=== PATIENT | male | born 1945 | race Caucasian/White ===

== ENCOUNTER → 2018-02-23 | Outpatient (CLI) | payer MEDICARE | END | disposition home or self-care (01) | LOC: CFH 06:59 | PROVIDERS: ATTEND Nurse Practitioner Family | DX: G31.9 Degenerative disease of nervous system, unspecified (principal); R90.82 White matter disease, unspecified | CPT/HCPCS: 70551 ==

== ENCOUNTER → 2018-05-06 | Outpatient (CLI) | payer MEDICARE ==
[~2018-05-06] MED LIST: OMNIPAQUE 350 MG/ML, 100ML BOTTLE ONE
== END | disposition home or self-care (01) ==
LOC: CFH 11:41
PROVIDERS: ATTEND Nurse Practitioner Family
DX: I65.23 Occlusion and stenosis of bilateral carotid arteries (principal); R42 Dizziness and giddiness
CPT/HCPCS: 70496; 70498; Q9967

== ENCOUNTER 2018-06-09 10:47 | Inpatient (IN) | payer MEDICARE ==
[~2018-06-09] VITALS: Ht 185.4 cm; Wt 77.3 kg
[2018-06-09 11:19] LABS: BASOPHILS # (AUTO) 0.03 x10^3/uL (0-0.1); BASOPHILS % (AUTO) 0 % (0-1); EOSINOPHILS # (AUTO) 0.09 x10^3/uL (0-0.4); EOSINOPHILS % (AUTO) 1 % (1-7); LYMPHOCYTES # (AUTO) 1.57 x10^3/uL (1-3.4); LYMPHOCYTES % (AUTO) 22 % (22-44); MD NO; MEAN CORPUSCULAR HEMOGLOBIN 31.5 pg (27.5-34.5); MEAN CORPUSCULAR HGB CONC 34.1 g/dL (33.2-36.2); MEAN CORPUSCULAR VOLUME 92.4 fL (81-97); MEAN PLATELET VOLUME 8.4 fL (7.4-10.4); MONOCYTES # (AUTO) 0.42 x10^3/uL (0.2-0.8); MONOCYTES % (AUTO) 6 % (2-9); NEUTROPHILS # (AUTO) 5.09 x10^3/uL (1.8-6.8); NEUTROPHILS % (AUTO) 71 % (42-75); PLATELET COUNT 220 x10^3/uL (130-400); RED BLOOD COUNT 4.36 x10^6/uL (4.38-5.82); RED CELL DISTRIBUTION WIDTH 13.2 % (9.4-14.8)
[2018-06-09 11:27] LABS: ALBUMIN 3.4 g/dL (3.4-5.0); ANION GAP 7 mmol/L (5-15); CALCIUM 8.8 mg/dL (8.5-10.1); CHLORIDE 110 mmol/L (98-107); CREATININE 1.24 mg/dL (0.7-1.3)
[2018-06-09 11:31] LABS: TROPONIN I < 0.015 ng/mL (0.000-0.045)
--- NOTE | 2018-06-09 11:50 | NUR ---
patient safe in [facility], accompanied by spouse, US at bedside now for carotid scan, VSS on room air, no pain, call light in reach. Patient's spouse recounts the following: Constipation x 7 days patient straining to have BM this AM, spouse heard the patient drop his book and ask for her help, she found him prone on the floor, stating "I feel exhausted", patient was then helped up to the toilet, appeared to fall asleep with slight snore, spouse went to get phone and called 911, upon returning to the bathroom patient sitting up at toilet wide awake with no discomfort.
--- NOTE | 2018-06-09 14:30 | NUR ---
report to MARIEL Garza, all questions answered, patient updated of transfer plan, 2 large BMs within last 90 minutes, no dizziness since arrival to ER.
[2018-06-09] MEDS ORDERED: ONDANSETRON ODT 4 MG PO PRN (15:00)
[2018-06-09] MEDS ORDERED: DOCUSATE 100 MG CAPSULE PO PRN (15:00)
[2018-06-09] MEDS ORDERED: ACETAMINOPHEN 325 MG TABLET PO PRN (15:00)
[2018-06-09] MEDS ORDERED: BISACODYL 10 MG SUPP PR PRN (15:00)
[2018-06-09] MEDS ORDERED: ONDANSETRON 2MG/ML, 2ML IVPush PRN (15:00)
[2018-06-09] MEDS ORDERED: hydrALAzine 20 MG/ML, 1ML IVPush PRN (15:00)
[2018-06-09] MEDS ORDERED: ENALAPRILAT 1.25 MG/ML, 2ML IVPush PRN (15:00)
[2018-06-09 15:03] VITALS: BP 148/75
[2018-06-09] MEDS ORDERED: LORA2TAB99 PO (15:07)
[2018-06-09] MEDS ORDERED: LISI-167 PO (15:35)
[2018-06-09 16:06] LABS: HEMOGLOBIN A1C 5.6 % (4.2-6.3)
[2018-06-09] MEDS: SODIUM CHLORIDE 0.9% 1,000 ML IV SCH (16:12)
[2018-06-09 16:26] LABS: MICROSCOPIC NOT IND
[2018-06-09 16:30] LABS: CULTURE INDICATED? NO
[2018-06-09 19:20] VITALS: BP_SYST 117; BP_SYST 122; BP_DIAS 61; BP_DIAS 65
[2018-06-09 19:22] VITALS: BP 119/64
[2018-06-10] MEDS ORDERED: LORazepam 1MG TABLET PO PRN
[2018-06-10] MEDS ORDERED: MAGNESIUM CITRATE 300ML ORAL SOL PO PRN
[2018-06-10 01:57] VITALS: BP 124/68
[2018-06-10] MEDS: SODIUM CHLORIDE 0.9% 1,000 ML IV SCH (05:21)
[2018-06-10 06:11] LABS: BASOPHILS # (AUTO) 0.02 x10^3/uL (0-0.1); BASOPHILS % (AUTO) 0 % (0-1); EOSINOPHILS # (AUTO) 0.09 x10^3/uL (0-0.4); EOSINOPHILS % (AUTO) 1 % (1-7); LYMPHOCYTES # (AUTO) 2.34 x10^3/uL (1-3.4); LYMPHOCYTES % (AUTO) 32 % (22-44); MD NO; MEAN CORPUSCULAR HEMOGLOBIN 30.9 pg (27.5-34.5); MEAN CORPUSCULAR HGB CONC 33.3 g/dL (33.2-36.2); MEAN CORPUSCULAR VOLUME 92.8 fL (81-97); MEAN PLATELET VOLUME 8.6 fL (7.4-10.4); MONOCYTES # (AUTO) 0.65 x10^3/uL (0.2-0.8); MONOCYTES % (AUTO) 9 % (2-9); NEUTROPHILS % (AUTO) 58 % (42-75); PLATELET COUNT 209 x10^3/uL (130-400); RED BLOOD COUNT 4.03 x10^6/uL (4.38-5.82); RED CELL DISTRIBUTION WIDTH 13.8 % (9.4-14.8)
[2018-06-10 06:27] LABS: ANION GAP 6 mmol/L (5-15); CALCIUM 8.2 mg/dL (8.5-10.1); CHLORIDE 113 mmol/L (98-107)
[2018-06-10 06:38] LABS: CHOL/HDL RATIO 4.4; CHOLESTEROL, TOTAL 201 mg/dL (140-239); CREATININE 0.91 mg/dL (0.7-1.3); HDL CHOL % 23 % (26-37); HDL CHOLESTEROL (DIRECT) 46 mg/dL (40-60); LDL CHOLESTEROL,CALCULATED 143 mg/dL (54-169); LDL/HDL RATIO 3.1 (0.5-3.0); TRIGLYCERIDES 58 mg/dL (50-200); VLDL CHOLESTEROL 12 mg/dL (0-25)
[2018-06-10 06:55] VITALS: BP 140/79
[2018-06-10] MEDS ORDERED: ASCORBIC ACID 500 MG TABLET PO SCH (08:00)
[2018-06-10] MEDS ORDERED: OMEGA-3/FISH OIL CAPSULE PO SCH (09:00)
[2018-06-10] MEDS ORDERED: MULTIVITAMIN 1 TABLET PO SCH (09:00)
[2018-06-10] MEDS ORDERED: LISINOPRIL 10 MG TABLET PO SCH (09:00)
[2018-06-10] MEDS ORDERED: CALCIUM CITRATE 950 MG TABLET PO SCH (09:00)
[2018-06-10] MEDS ORDERED: ASPI-515 PO (13:46)
[2018-06-10] MEDS ORDERED: ATOR40TA78 PO (13:46)
== END 2018-06-10 14:00 | disposition home or self-care (01) | DRG 312 ==
LOC: ED 11:11 → EDIP 13:43 → 4EST 14:47
PROVIDERS: ADMIT Hospitalist; ATTEND Hospitalist
DX: R55 Syncope and collapse (principal); G90.9 Disorder of the autonomic nervous system, unspecified; I35.8 Other nonrheumatic aortic valve disorders; I44.0 Atrioventricular block, first degree; I65.23 Occlusion and stenosis of bilateral carotid arteries; K59.00 Constipation, unspecified; Z87.442 Personal history of urinary calculi
CPT/HCPCS: 36415; 74018; 80048; 80061; 81003; 82040; 83036; 84443; 84484; 85025; 93005; 93306; 93880; 95819; 99285; G0378; J7030

== ENCOUNTER 2018-06-18 08:00 | Inpatient (IN) | payer MEDICARE ==
[~2018-06-18] VITALS: Ht 185.4 cm; Wt 69.8 kg
[~2018-06-18 08:00] MED LIST changes: +ASPI-515 PO; +ATOR40TA78 PO; +LISI-167 PO; +LORA2TAB99 PO; -OMNIPAQUE 350 MG/ML, 100ML BOTTLE ONE
[2018-06-18] MEDS ORDERED: CHOL500062 PO (13:36)
[2018-06-18] MEDS ORDERED: SILD20TA2 PO (13:36)
[2018-06-18] MEDS ORDERED: OMEG-123 PO (13:36)
[2018-06-18] MEDS ORDERED: RED600CA2 PO (13:36)
[2018-06-18] MEDS ORDERED: LORA1TAB PO (13:36)
[2018-06-18] MEDS ORDERED: OCUVITE SOFTGE1 EACH PO (13:36)
[2018-06-18] MEDS ORDERED: CRAN500T2 PO (13:36)
[2018-06-18] MEDS ORDERED: CA C1TAB62 PO (13:36)
[2018-06-18 13:51] VITALS: BP 144/83
[2018-06-18] MEDS ORDERED: BUPIVACAINE/PF-EPI 0.5% 1:200K ONE (14:51)
[2018-06-18] MEDS ORDERED: HEPARIN 1,000 UNITS/ML, 10ML ONE (14:51)
[2018-06-18] MEDS ORDERED: PROTAMINE SULFATE 10 MG/ML, 5ML ONE (14:51)
[2018-06-18] MEDS ORDERED: PAPAVERINE 30 MG/ML, 2ML ONE (14:51)
[2018-06-18] MEDS ORDERED: THROMBIN 20,000 UNIT VIAL TP ONE (14:52)
[2018-06-18] MEDS ORDERED: BACITRACIN 50,000 UNIT ONE (14:52)
[2018-06-18] MEDS ORDERED: PROPOFOL 10 MG/ML, 20ML ONE (14:58)
[2018-06-18] MEDS ORDERED: ROCURONIUM 10MG/ML,5ML ONE (14:58)
[2018-06-18] MEDS ORDERED: EPHEDRINE 50 MG/ML, 1ML ONE (14:58)
[2018-06-18] MEDS ORDERED: CEFAZOLIN 1,000 MG ONE (14:58)
[2018-06-18] MEDS ORDERED: FENTANYL PF 100 MCG/2ML ONE ×3 (15:21→18:14)
[2018-06-18] MEDS ORDERED: LIDOCAINE 1%, 20ML ONE (16:37)
[2018-06-18] MEDS ORDERED: BUPIVACAINE/PF-EPI 0.5% 1:200K INFIL ONE (16:40)
[2018-06-18] MEDS ORDERED: LIDOCAINE 1%, 20ML INFIL ONE (16:42)
[2018-06-18] MEDS ORDERED: HYDROmorphone 2 MG/ML, 1ML IVPush PRN (17:30)
[2018-06-18] MEDS ORDERED: PROMETHAZINE 25 MG/ML, 1ML IV PRN (17:30)
[2018-06-18] MEDS ORDERED: DIAZEPAM 5 MG/ML, 2ML IVPush PRN (17:30)
[2018-06-18] MEDS ORDERED: LABETALOL 5MG/ML, 20ML IV PRN (17:30)
[2018-06-18] MEDS ORDERED: ALBUTEROL SULFATE 2.5 MG/3 ML NPPB PRN (17:30)
[2018-06-18] MEDS ORDERED: ACETAMINOPHEN 325 MG TABLET PO PRN (17:30)
[2018-06-18] MEDS ORDERED: OXYcodone 5 MG/5 ML ORAL.SOL UDC PO PRN (17:30)
[2018-06-18] MEDS ORDERED: MEPERIDINE/PF 25MG/0.5ML IVPush PRN (17:30)
[2018-06-18] MEDS ORDERED: hydrALAzine 20 MG/ML, 1ML IV PRN ×2 (17:30→18:30)
[2018-06-18] MEDS ORDERED: LACTATED RINGERS 1,000 ML IV SCH (18:13)
[2018-06-18] MEDS: FENTANYL PF 100 MCG/2ML IV PRN ×2 (18:15→18:45)
[2018-06-18] MEDS ORDERED: ACETAMINOPHEN 650 MG SUPP PR PRN (18:30)
[2018-06-18] MEDS ORDERED: CEFAZOLIN PMX 1GM/50ML 50 ML IVPB SCH (18:30)
[2018-06-18] MEDS ORDERED: ASPIRIN 81 MG TABLET EC PO ONE (18:30)
[2018-06-18] MEDS ORDERED: SILDENAFIL CITRATE 100 MG HOMEMEDPO PRN (18:30)
[2018-06-18] MEDS ORDERED: LORazepam 1MG TABLET PO PRN (18:30)
[2018-06-18] MEDS ORDERED: OXYcodone 5 MG/5 ML ORAL.SOL UDC ONE (18:47)
[2018-06-18] MEDS ORDERED: ACETAMINOPHEN 650 MG/20.3 ML UDC ONE (18:49)
[2018-06-18] MEDS ORDERED: ASPIRIN 81 MG TABLET EC ONE (18:49)
[2018-06-18 20:00] VITALS: BP 136/66
[2018-06-18] MEDS ORDERED: TEMPLATE NON-FORMULARY MED. (Red Yeast Rice** 600 MG) PO SCH (21:00)
[2018-06-18] MEDS ORDERED: CRANBERRY EXTRACT PO SCH (21:00)
[2018-06-18] MEDS: ENOXAPARIN 40 MG/0.4 ML SQ SCH (22:15)
[2018-06-18] MEDS: OMEGA-3/FISH OIL CAPSULE PO SCH (22:15)
[2018-06-18 22:21] VITALS: BP 136/66
[2018-06-19] VITALS (7 sets, daily range): BP systolic 93–123; BP diastolic 50–69
[2018-06-19] MEDS: CEFAZOLIN PMX 1GM/50ML 50 ML IVPB SCH ×2 (00:12→07:52)
[2018-06-19] MEDS: OMEGA-3/FISH OIL CAPSULE PO SCH ×2 (07:51→19:52)
[2018-06-19] MEDS: CHOLECALCIFEROL 5,000u TAB PO SCH (07:51)
[2018-06-19] MEDS: HYDROcodone/APAP 5/325 TABLET PO PRN (07:51)
[2018-06-19] MEDS: LUTEIN PO SCH (07:52)
[2018-06-19] MEDS: VIT C PO SCH (07:52)
[2018-06-19] MEDS: VIT E PO SCH (07:52)
[2018-06-19] MEDS: OMEGA PO SCH (07:52)
[2018-06-19] MEDS: TAMSULOSIN 0.4 MG CAP.ER.24H PO SCH (09:53)
[2018-06-19] MEDS ORDERED: SILDENAFIL CITRATE 100 MG HOMEMEDPO PRN (11:30)
[2018-06-19] MEDS: ENOXAPARIN 40 MG/0.4 ML SQ SCH (18:20)
[2018-06-19] MEDS ORDERED: SODIUM CHLORIDE 0.9%, 500ML IVBOLUS ONE (22:30)
[2018-06-19] MEDS: SODIUM CHLORIDE 0.9% 1,000 ML IV SCH (23:08)
[2018-06-20] MEDS: HYDROcodone/APAP 5/325 TABLET PO PRN ×2 (00:32→06:01)
[2018-06-20 01:30] VITALS: BP 116/66
[2018-06-20 06:51] VITALS: BP 119/63
[2018-06-20] MEDS: VIT C PO SCH (09:00)
[2018-06-20] MEDS: VIT E PO SCH (09:00)
[2018-06-20] MEDS: OMEGA PO SCH (09:00)
[2018-06-20] MEDS: LUTEIN PO SCH (09:00)
[2018-06-20] MEDS: CHOLECALCIFEROL 5,000u TAB PO SCH (09:47)
[2018-06-20] MEDS: TAMSULOSIN 0.4 MG CAP.ER.24H PO SCH (09:47)
[2018-06-20] MEDS: OMEGA-3/FISH OIL CAPSULE PO SCH ×2 (09:47→20:54)
[2018-06-20] MEDS: SODIUM CHLORIDE 0.9% 1,000 ML IV SCH (10:05)
[2018-06-20 13:21] VITALS: BP 120/70
[2018-06-20] MEDS ORDERED: GADOBUTROL 7.5 MMOL/7.5 ML PFS ONE (13:41)
[2018-06-20] MEDS: ENOXAPARIN 40 MG/0.4 ML SQ SCH (18:26)
[2018-06-20 19:27] VITALS: BP 126/69
[2018-06-21 01:35] VITALS: BP 116/74
[2018-06-21] MEDS: SODIUM CHLORIDE 0.9% 1,000 ML IV SCH (05:15)
[2018-06-21 08:27] VITALS: BP 143/83
[2018-06-21] MEDS: CHOLECALCIFEROL 5,000u TAB PO SCH (08:59)
[2018-06-21] MEDS: LUTEIN PO SCH (08:59)
[2018-06-21] MEDS: TAMSULOSIN 0.4 MG CAP.ER.24H PO SCH (08:59)
[2018-06-21] MEDS: OMEGA-3/FISH OIL CAPSULE PO SCH (08:59)
[2018-06-21] MEDS: OMEGA PO SCH (08:59)
[2018-06-21] MEDS: VIT C PO SCH (08:59)
[2018-06-21] MEDS: VIT E PO SCH (08:59)
[2018-06-21] MEDS ORDERED: ATOR20TA37 PO (11:05)
[2018-06-21] MEDS ORDERED: APIX5TAB PO (11:05)
[2018-06-21] MEDS ORDERED: METO25TA35 PO ×2 (11:05)
[2018-06-21] MEDS ORDERED: ASPI-496 PO (11:05)
[2018-06-21 12:11] VITALS: BP 132/75
[2018-06-21] MEDS ORDERED: TAMS-11 PO (13:31)
[2018-06-22] MEDS ORDERED: TAMSULOSIN 0.4 MG CAP.ER.24H PO SCH (09:00)
== END 2018-06-21 14:05 | disposition home or self-care (01) | DRG 37 ==
LOC: 4NOR 12:24 → 5SO 19:56 → DCLOUNGE 06-21 13:57
PROVIDERS: ADMIT Surgery; ATTEND Surgery
PROC: 03UJ0JZ Supplement Left Common Carotid Artery with Synthetic Substitute, Open Approach (ICD-10-PCS; 2018-06-18)
PROC: 03HY32Z Insertion of Monitoring Device into Upper Artery, Percutaneous Approach (ICD-10-PCS; 2018-06-18)
PROC: 03CN0ZZ Extirpation of Matter from Left External Carotid Artery, Open Approach (ICD-10-PCS; 2018-06-18)
PROC: 03UN0JZ Supplement Left External Carotid Artery with Synthetic Substitute, Open Approach (ICD-10-PCS; 2018-06-18)
PROC: 03CJ0ZZ Extirpation of Matter from Left Common Carotid Artery, Open Approach (ICD-10-PCS; principal; 2018-06-18 15:00)
DX: I65.23 Occlusion and stenosis of bilateral carotid arteries (principal); I63.40 Cerebral infarction due to embolism of unspecified cerebral artery; D68.69 Other thrombophilia; E78.5 Hyperlipidemia, unspecified; F41.9 Anxiety disorder, unspecified; I48.0 Paroxysmal atrial fibrillation; I73.9 Peripheral vascular disease, unspecified; I89.0 Lymphedema, not elsewhere classified; N40.0 Benign prostatic hyperplasia without lower urinary tract symptoms; Z79.01 Long term (current) use of anticoagulants; Z82.3 Family history of stroke; Z85.820 Personal history of malignant melanoma of skin; Z87.891 Personal history of nicotine dependence; Z82.49 Family history of ischemic heart disease and other diseases of the circulatory system; Z80.3 Family history of malignant neoplasm of breast; Z90.49 Acquired absence of other specified parts of digestive tract; Z90.89 Acquired absence of other organs
CPT/HCPCS: 70450; 70553; 71045; 93005; 93308; A9585; C1729; G0378; J0690; J1644; J1650; J2704; J2720; J3010; J3490; C1781; J0360; J2440; J7030; J7040

== ENCOUNTER 2018-06-27 21:06 | Inpatient (IN) | payer MEDICARE ==
[~2018-06-27] VITALS: Ht 185.4 cm; Wt 74.2 kg
[~2018-06-27 21:06] MED LIST changes: +APIX5TAB PO; +ASPI-496 PO; +ATOR20TA37 PO; +CA C1TAB62 PO; +CHOL500062 PO; +CRAN500T2 PO; +LORA1TAB PO; +METO25TA35 PO; +OCUVITE SOFTGE1 EACH PO; +OMEG-123 PO; +RED600CA2 PO; +SILD20TA2 PO; +TAMS-11 PO
--- NOTE | 2018-06-27 21:10 | NUR ---
LATE ENTRY FOR 21:10. FIRST CONTACT WITH PT. PT C/O DIZZINESS SINCE 20PM TONIGHT. PT HAS HX OF DIZZINESS ON AND OFF FOR A WHILE. PT DENIES ANY OTHER S/S AT THIS TIME. PT'S AOX4. RESPS EVEN AND UNLABORED. ALL MONITORS IN PLACE. CALL LIGHT WITHIN REACH. A-FIB ON MATE RELIEF AT THIS TIME. EDMD NOTIFIED. EDMD AT BEDSIDE TO EXPLAIN POC AT THIS TIME.
[2018-06-27] MEDS ORDERED: SODIUM CHLORIDE FLUSH 10ML SYR IVF ONE (21:30)
[2018-06-27] MEDS ORDERED: methylPREDNISolone SOD SUCC 125 MG/2 ML ONE (21:41)
--- NOTE | 2018-06-27 22:00 | NUR ---
PT AMB TO BR AND BACK TO ROOM WITH STEADY GAIT FOR UA.
[2018-06-27 22:32] LABS: BASOPHILS # (AUTO) 0.11 x10^3/uL (0-0.1); BASOPHILS % (AUTO) 2 % (0-1); EOSINOPHILS # (AUTO) 0.15 x10^3/uL (0-0.4); EOSINOPHILS % (AUTO) 2 % (1-7); LYMPHOCYTES # (AUTO) 1.93 x10^3/uL (1-3.4); LYMPHOCYTES % (AUTO) 27 % (22-44); MD NO; MEAN CORPUSCULAR HEMOGLOBIN 31.1 pg (27.5-34.5); MEAN CORPUSCULAR HGB CONC 33.7 g/dL (33.2-36.2); MEAN CORPUSCULAR VOLUME 92.4 fL (81-97); MEAN PLATELET VOLUME 9.1 fL (7.4-10.4); MONOCYTES # (AUTO) 0.64 x10^3/uL (0.2-0.8); MONOCYTES % (AUTO) 9 % (2-9); NEUTROPHILS # (AUTO) 4.46 x10^3/uL (1.8-6.8); NEUTROPHILS % (AUTO) 61 % (42-75); PLATELET COUNT 297 x10^3/uL (130-400); RED BLOOD COUNT 4.36 x10^6/uL (4.38-5.82); RED CELL DISTRIBUTION WIDTH 12.9 % (9.4-14.8)
[2018-06-27 22:45] LABS: ALANINE AMINOTRANSFERASE 36 U/L (12-78); ALBUMIN 3.4 g/dL (3.4-5.0); ANION GAP 7 mmol/L (5-15); CALCIUM 8.7 mg/dL (8.5-10.1); CHLORIDE 108 mmol/L (98-107); CREATININE 1.21 mg/dL (0.7-1.3)
[2018-06-27 22:49] LABS: MICROSCOPIC NOT IND
[2018-06-27 22:50] LABS: ALKALINE PHOSPHATASE 75 U/L (45-117); BILIRUBIN,TOTAL 0.4 mg/dL (0.2-1.0); TOTAL PROTEIN 7.7 g/dL (6.4-8.2); TROPONIN I < 0.015 ng/mL (0.000-0.045)
[2018-06-27] MEDS ORDERED: TAMS-11 PO (22:54)
[2018-06-27 22:57] LABS: CULTURE INDICATED? NO
--- NOTE | 2018-06-27 23:02 | NUR ---
PT RESTING IN [place]. PT'S AOX4. RESPS EVEN AND UNLABORED. ALL MONITORS IN PLACE. CALL LIGHT WITHIN REACH. PT'S AT BEDSIDE. PT DENIES ANY NEEDS OR CONCERNS AT THIS TIME.
--- NOTE | 2018-06-27 23:22 | NUR ---
A-FIB ON INSIGHT DIRECTOR RATE 60'S AT THIS TIME. HR DROPPED TO 25 BPM. EDMD NOTIFIED . EDMD DECIDED TO DO CARDIOVERSION.
[2018-06-27] MEDS ORDERED: PROPOFOL 10 MG/ML, 20ML IVPush ONE (23:30)
[2018-06-27] MEDS ORDERED: PROPOFOL 10 MG/ML, 20ML ONE (23:34)
--- NOTE | 2018-06-27 23:54 | NUR ---
EDMD DID CARDIOVERSION. SEE PAPER CHARTING.
--- NOTE | 2018-06-28 00:22 | NUR ---
REPORT GIVEN TO JESSE FLOYD. ALL QUESTIONS ANSWERED.
[2018-06-28] MEDS ORDERED: BISACODYL 10 MG SUPP PR PRN (00:30)
[2018-06-28] MEDS ORDERED: LORazepam 1MG TABLET PO PRN (00:30)
[2018-06-28] MEDS ORDERED: POLYETHYLENE GLYCOL 17 GM PACKET PO PRN (00:30)
[2018-06-28] MEDS ORDERED: ONDANSETRON ODT 4 MG PO PRN (00:30)
[2018-06-28] MEDS ORDERED: ACETAMINOPHEN 325 MG TABLET PO PRN (00:30)
[2018-06-28 00:59] VITALS: BP 136/82
[2018-06-28 03:30] VITALS: BP 141/85
[2018-06-28] MEDS: ASPIRIN 81 MG TABLET EC PO SCH (05:48)
[2018-06-28 05:56] LABS: BASOPHILS # (AUTO) 0.04 x10^3/uL (0-0.1); BASOPHILS % (AUTO) 1 % (0-1); EOSINOPHILS # (AUTO) 0.11 x10^3/uL (0-0.4); EOSINOPHILS % (AUTO) 2 % (1-7); LYMPHOCYTES # (AUTO) 2.31 x10^3/uL (1-3.4); LYMPHOCYTES % (AUTO) 37 % (22-44); MD NO; MEAN CORPUSCULAR HEMOGLOBIN 31.4 pg (27.5-34.5); MEAN CORPUSCULAR HGB CONC 33.8 g/dL (33.2-36.2); MEAN CORPUSCULAR VOLUME 92.7 fL (81-97); MEAN PLATELET VOLUME 8.4 fL (7.4-10.4); MONOCYTES # (AUTO) 0.59 x10^3/uL (0.2-0.8); MONOCYTES % (AUTO) 9 % (2-9); NEUTROPHILS # (AUTO) 3.21 x10^3/uL (1.8-6.8); NEUTROPHILS % (AUTO) 51 % (42-75); PLATELET COUNT 289 x10^3/uL (130-400); RED BLOOD COUNT 4.12 x10^6/uL (4.38-5.82); RED CELL DISTRIBUTION WIDTH 12.9 % (9.4-14.8)
[2018-06-28 06:10] LABS: CHLORIDE 114 mmol/L (98-107)
[2018-06-28 06:33] LABS: ALANINE AMINOTRANSFERASE 31 U/L (12-78); ALKALINE PHOSPHATASE 64 U/L (45-117); ANION GAP 7 mmol/L (5-15); BILIRUBIN,TOTAL 0.6 mg/dL (0.2-1.0); CALCIUM 8.2 mg/dL (8.5-10.1); CREATININE 0.85 mg/dL (0.7-1.3); TOTAL PROTEIN 6.9 g/dL (6.4-8.2); TROPONIN I < 0.015 ng/mL (0.000-0.045)
[2018-06-28 06:52] VITALS: BP 151/71
[2018-06-28] MEDS ORDERED: METOPROLOL TARTRATE 25 MG TABLET PO SCH (09:00)
[2018-06-28] MEDS ORDERED: TEMPLATE NON-FORMULARY MED. (Ca Carb & Gluc/Mag Ox & Gluc** (Calcium Magnesium Caplet**) 1 PO SCH (09:00)
[2018-06-28] MEDS ORDERED: CRANBERRY EXTRACT PO SCH (09:00)
[2018-06-28] MEDS: APIXABAN 5 MG TABLET PO SCH ×2 (09:00→17:49)
[2018-06-28] MEDS: MULTIVITAMINS/MINERALS TABLET PO SCH (09:53)
[2018-06-28] MEDS: SENNA/DOCUSATE TABLET PO SCH (09:54)
[2018-06-28] MEDS: TAMSULOSIN 0.4 MG CAP.ER.24H PO SCH (09:54)
[2018-06-28] MEDS: CHOLECALCIFEROL 5,000u TAB PO SCH (09:54)
[2018-06-28] MEDS: SODIUM CHLORIDE FLUSH 10ML SYR IVF SCH ×2 (09:57→20:47)
[2018-06-28 11:24] LABS: TROPONIN I < 0.015 ng/mL (0.000-0.045)
[2018-06-28 12:42] VITALS: BP 138/68
[2018-06-28 20:00] VITALS: BP 94/54
[2018-06-28] MEDS: ATORVASTATIN 20 MG TABLET PO SCH (20:47)
[2018-06-29 02:00] VITALS: BP 120/65
[2018-06-29 05:39] LABS: CHOL/HDL RATIO 4.1; LDL/HDL RATIO 2.8 (0.5-3.0)
[2018-06-29] MEDS: ASPIRIN 81 MG TABLET EC PO SCH (05:52)
[2018-06-29 07:05] VITALS: BP 117/76
[2018-06-29] MEDS ORDERED: FENTANYL PF 250 MCG/5ML ONE (07:23)
[2018-06-29] MEDS ORDERED: PROPOFOL 50 ML ONE (07:23)
[2018-06-29] MEDS ORDERED: SUCCINYLCHOLINE 20 MG/ML, 10ML ONE (08:03)
[2018-06-29] MEDS ORDERED: ROCURONIUM 10 MG/ML,10ML ONE (08:03)
[2018-06-29] MEDS ORDERED: DEXAMETHASONE 4 MG/ML, 1ML ONE (08:03)
[2018-06-29] MEDS ORDERED: ONDANSETRON 2MG/ML, 2ML ONE (08:03)
[2018-06-29] MEDS ORDERED: HEPARIN 1,000 UNITS/ML, 30ML ONE (08:03)
[2018-06-29] MEDS ORDERED: MIDAZOLAM 1 MG/ML, 2ML ONE (08:17)
[2018-06-29] MEDS ORDERED: PROTAMINE SULFATE 10 MG/ML, 5ML ONE (08:22)
[2018-06-29] MEDS ORDERED: LIDOCAINE 2%, 20ML ONE (08:22)
[2018-06-29] MEDS ORDERED: HEPARIN 1,000 UNITS/ML, 10ML ONE (08:22)
[2018-06-29] MEDS: APIXABAN 5 MG TABLET PO SCH ×2 (12:00→20:13)
[2018-06-29] MEDS ORDERED: APIXABAN 5 MG TABLET ONE (12:07)
[2018-06-29 13:51] VITALS: BP 146/81
[2018-06-29] MEDS: MULTIVITAMINS/MINERALS TABLET PO SCH (16:38)
[2018-06-29] MEDS: SENNA/DOCUSATE TABLET PO SCH (16:38)
[2018-06-29] MEDS: TAMSULOSIN 0.4 MG CAP.ER.24H PO SCH (16:38)
[2018-06-29] MEDS: SODIUM CHLORIDE FLUSH 10ML SYR IVF SCH ×2 (16:39→20:13)
[2018-06-29] MEDS: CHOLECALCIFEROL 5,000u TAB PO SCH (16:39)
[2018-06-29 18:36] VITALS: BP 146/77
[2018-06-29] MEDS: ATORVASTATIN 20 MG TABLET PO SCH (20:13)
[2018-06-30 01:18] VITALS: BP 111/62
[2018-06-30] MEDS: ASPIRIN 81 MG TABLET EC PO SCH (05:52)
[2018-06-30 06:50] VITALS: BP 117/70
[2018-06-30] MEDS: SENNA/DOCUSATE TABLET PO SCH (08:14)
[2018-06-30] MEDS: MULTIVITAMINS/MINERALS TABLET PO SCH (08:14)
[2018-06-30] MEDS: CHOLECALCIFEROL 5,000u TAB PO SCH (08:14)
[2018-06-30] MEDS: TAMSULOSIN 0.4 MG CAP.ER.24H PO SCH (08:14)
[2018-06-30] MEDS: APIXABAN 5 MG TABLET PO SCH (08:14)
[2018-06-30] MEDS: SODIUM CHLORIDE FLUSH 10ML SYR IVF SCH (08:15)
[2018-06-30 13:09] VITALS: BP 117/70
== END 2018-06-30 14:50 | disposition home or self-care (01) | DRG 273 ==
LOC: ED 22:47 → EDIP 23:57 → 5SO 06-28 00:31 → DCLOUNGE 06-30 14:43
PROVIDERS: ADMIT Internal Medicine; ATTEND Internal Medicine
PROC: 5A2204Z Restoration of Cardiac Rhythm, Single (ICD-10-PCS; principal; 2018-06-27)
PROC: 02583ZZ Destruction of Conduction Mechanism, Percutaneous Approach (ICD-10-PCS; 2018-06-29)
PROC: 02573ZZ Destruction of Left Atrium, Percutaneous Approach (ICD-10-PCS; 2018-06-29)
PROC: 02K83ZZ Map Conduction Mechanism, Percutaneous Approach (ICD-10-PCS; 2018-06-29)
PROC: 4A023FZ Measurement of Cardiac Rhythm, Percutaneous Approach (ICD-10-PCS; 2018-06-29)
PROC: 4A0234Z Measurement of Cardiac Electrical Activity, Percutaneous Approach (ICD-10-PCS; 2018-06-29)
DX: I48.3 Typical atrial flutter (principal); N17.0 Acute kidney failure with tubular necrosis; D68.69 Other thrombophilia; I73.9 Peripheral vascular disease, unspecified; E78.5 Hyperlipidemia, unspecified; E89.0 Postprocedural hypothyroidism; F41.9 Anxiety disorder, unspecified; I48.0 Paroxysmal atrial fibrillation; N40.0 Benign prostatic hyperplasia without lower urinary tract symptoms; Z79.01 Long term (current) use of anticoagulants; Z80.3 Family history of malignant neoplasm of breast; Z82.49 Family history of ischemic heart disease and other diseases of the circulatory system; Z87.442 Personal history of urinary calculi; Z87.891 Personal history of nicotine dependence
CPT/HCPCS: 36415; 80053; 80061; 81003; 83735; 84443; 84484; 85025; 85347; 92960; 93005; 93308; 93312; 93321; 93325; 93613; 93655; 93656; 93662; 99152; 99285; C1731; C1732; C1766; C1894; G0378; J1100; J1644; J2250; J2405; J2704; J2720; J3010; J3490; C1730; C1759; J0330

== ENCOUNTER 2018-06-30 20:46 | Emergency (ER) | payer MEDICARE ==
[~2018-06-30] VITALS: Ht 185.4 cm; Wt 31.8 kg
--- NOTE | 2018-06-30 21:10 | NUR ---
DR. ARMENDARIZ WAS IN TO EVAL PT. AND DISCUSS POC WITH PT. AND FAMILY AT . EKG COMPLETED AND PRESENTED TO ERMD. PT. DENIES NEEDS. GIOVANAN.
[2018-06-30] MEDS ORDERED: MICROFIBRILLAR COLLAGEN 1 GM TP ONE ×2 (21:21→21:30)
--- NOTE | 2018-06-30 21:40 | NUR ---
DR. ARMENDARIZ AT PLACING AVITENE AND DRESSING.
[2018-06-30 21:55] LABS: BASOPHILS % (AUTO) 1 % (0-1); EOSINOPHILS # (AUTO) 0.07 x10^3/uL (0-0.4); EOSINOPHILS % (AUTO) 1 % (1-7); LYMPHOCYTES # (AUTO) 1.26 x10^3/uL (1-3.4); LYMPHOCYTES % (AUTO) 14 % (22-44); MD NO; MEAN CORPUSCULAR HEMOGLOBIN 31.4 pg (27.5-34.5); MEAN CORPUSCULAR HGB CONC 33.9 g/dL (33.2-36.2); MEAN CORPUSCULAR VOLUME 92.7 fL (81-97); MEAN PLATELET VOLUME 8.4 fL (7.4-10.4); MONOCYTES # (AUTO) 1.15 x10^3/uL (0.2-0.8); MONOCYTES % (AUTO) 13 % (2-9); NEUTROPHILS # (AUTO) 6.31 x10^3/uL (1.8-6.8); NEUTROPHILS % (AUTO) 71 % (42-75); PLATELET COUNT 252 x10^3/uL (130-400); RED BLOOD COUNT 3.75 x10^6/uL (4.38-5.82); RED CELL DISTRIBUTION WIDTH 12.9 % (9.4-14.8)
[2018-06-30 22:04] LABS: ALBUMIN 3.1 g/dL (3.4-5.0); ANION GAP 5 mmol/L (5-15); CALCIUM 8.4 mg/dL (8.5-10.1); CHLORIDE 108 mmol/L (98-107); CREATININE 1.06 mg/dL (0.7-1.3)
[2018-06-30] MEDS ORDERED: LIDOCAINE 1%-EPI 1:100K, 30ML ONE (22:05)
[2018-06-30] MEDS ORDERED: LIDOCAINE 1%-EPI 1:100K, 20ML ONE ×2 (22:05→22:17)
[2018-06-30 22:11] VITALS: BP 145/70
[2018-06-30] MEDS ORDERED: LIDOCAINE 1%-EPI 1:100K, 20ML INFIL ONE (22:30)
== END 2018-06-30 23:30 | disposition home or self-care (01) ==
LOC: ED 22:23
DX: I97.621 Postprocedural hematoma of a circulatory system organ or structure following other procedure (principal); E78.5 Hyperlipidemia, unspecified; I48.91 Unspecified atrial fibrillation; Z87.891 Personal history of nicotine dependence
CPT/HCPCS: 36415; 80048; 82040; 85025; 93005; 99284

== ENCOUNTER 2018-10-17 15:44 | Emergency (ER) | payer MEDICARE ==
[~2018-10-17] VITALS: Ht 185.4 cm; Wt 75.7 kg
[2018-10-17] MEDS ORDERED: SODIUM CHLORIDE FLUSH 10ML SYR IVF ONE (16:30)
[2018-10-17 16:53] LABS: BASOPHILS # (AUTO) 0.02 x10^3/uL (0-0.1); BASOPHILS % (AUTO) 0 % (0-1); EOSINOPHILS # (AUTO) 0.03 x10^3/uL (0-0.4); EOSINOPHILS % (AUTO) 0 % (1-7); LYMPHOCYTES # (AUTO) 1.78 x10^3/uL (1-3.4); LYMPHOCYTES % (AUTO) 23 % (22-44); MD NO; MEAN CORPUSCULAR HEMOGLOBIN 31.1 pg (27.5-34.5); MEAN CORPUSCULAR VOLUME 94.4 fL (81-97); MEAN PLATELET VOLUME 8.2 fL (7.4-10.4); MONOCYTES # (AUTO) 0.58 x10^3/uL (0.2-0.8); MONOCYTES % (AUTO) 8 % (2-9); NEUTROPHILS # (AUTO) 5.36 x10^3/uL (1.8-6.8); NEUTROPHILS % (AUTO) 69 % (42-75); PLATELET COUNT 259 x10^3/uL (130-400); RED BLOOD COUNT 4.52 x10^6/uL (4.38-5.82); RED CELL DISTRIBUTION WIDTH 14.1 % (9.4-14.8)
[2018-10-17 17:00] LABS: ALANINE AMINOTRANSFERASE 34 U/L (12-78); ALBUMIN 4.2 g/dL (3.4-5.0); ANION GAP 8 mmol/L (5-15); CALCIUM 9.7 mg/dL (8.5-10.1); CHLORIDE 108 mmol/L (98-107); CREATININE 1.39 mg/dL (0.7-1.3)
[2018-10-17 17:03] LABS: ALKALINE PHOSPHATASE 76 U/L (45-117); BILIRUBIN,TOTAL 1.3 mg/dL (0.2-1.0); TOTAL PROTEIN 8.1 g/dL (6.4-8.2)
[2018-10-17] MEDS ORDERED: KETOROLAC 30 MG/1 ML ONE (18:49)
[2018-10-17] MEDS ORDERED: ONDANSETRON 2MG/ML, 2ML ONE (18:49)
[2018-10-17] MEDS ORDERED: MORPHINE SULFATE 4 MG/ML, 1ML ONE (18:50)
[2018-10-17] MEDS ORDERED: ONDANSETRON 2MG/ML, 2ML IVPush ONE (19:00)
[2018-10-17] MEDS ORDERED: MORPHINE SULFATE 4 MG/ML, 1ML IVPush PRN (19:00)
[2018-10-17] MEDS ORDERED: KETOROLAC 30 MG/1 ML IVPush ONE (19:00)
[2018-10-17] MEDS ORDERED: SODIUM CHLORIDE 0.9% 1,000ML IVBOLUS ONE (19:00)
--- NOTE | 2018-10-17 19:03 | NUR ---
C/O severe pain. IV started, meds admin, and NS hung. UA sent to lab. Will continue to monitor.
[2018-10-17 19:13] LABS: CULTURE INDICATED? YES; MICROSCOPIC INDICATED
[2018-10-17 20:19] VITALS: BP 160/76
--- NOTE | 2018-10-17 20:20 | NUR ---
Patient report 0/10 pain. No other needs at this time.
--- NOTE | 2018-10-17 20:38 | NUR ---
Patient/Caregiver given discharge instructions and they have confirmed that they understand the instructions. Patient ambulatory with steady gait.
== END 2018-10-17 20:39 | disposition home or self-care (01) ==
LOC: ED 20:33
DX: N13.2 Hydronephrosis with renal and ureteral calculous obstruction (principal); R11.2 Nausea with vomiting, unspecified; I11.9 Hypertensive heart disease without heart failure; E78.5 Hyperlipidemia, unspecified; I48.91 Unspecified atrial fibrillation
CPT/HCPCS: 36415; 74176; 80053; 81001; 85025; 87086; 96361; 96374; 96375; 99284; J1885; J2270; J2405; J7030

== ENCOUNTER 2018-10-19 04:31 | Inpatient (IN) | payer MEDICARE ==
[~2018-10-19] VITALS: Ht 185.4 cm; Wt 78.8 kg
[2018-10-19] MEDS ORDERED: MORPHINE SULFATE 4 MG/ML, 1ML IVPush PRN (05:00)
[2018-10-19] MEDS ORDERED: SODIUM CHLORIDE FLUSH 10ML SYR IVF ONE (05:00)
[2018-10-19] MEDS ORDERED: KETOROLAC 30 MG/1 ML IVPush ONE (05:00)
[2018-10-19] MEDS ORDERED: ONDANSETRON 2MG/ML, 2ML IVPush ONE (05:00)
[2018-10-19] MEDS ORDERED: ONDANSETRON 2MG/ML, 2ML ONE (05:09)
[2018-10-19] MEDS ORDERED: MORPHINE SULFATE 4 MG/ML, 1ML ONE (05:09)
[2018-10-19] MEDS ORDERED: KETOROLAC 30 MG/1 ML ONE (05:09)
--- NOTE | 2018-10-19 05:17 | NUR ---
PT. TO ED WITH C/O RLQ ABD AND RIGHT FLANK PAIN. KNOWN KIDNEY STONE. OUTPATIENT PAIN MEDS NOT WORKING. IV STARTED; PT. MEDICATED PER JUL. LABS DRAWN. PT. AWARE OF NEED FOR UA. FAMILY AT BS FOR SUPPORT. CALL LIGHT IN REACH. CONTINUOUS PULSE OX AND B/P MONITORS ARE IN PLACE. ALL SAFETY MEASUERS OBSERVED. URINAL AT BS.
[2018-10-19 05:34] LABS: BASOPHILS # (AUTO) 0.03 x10^3/uL (0-0.1); BASOPHILS % (AUTO) 0 % (0-1); EOSINOPHILS # (AUTO) 0.01 x10^3/uL (0-0.4); EOSINOPHILS % (AUTO) 0 % (1-7); LYMPHOCYTES # (AUTO) 1.27 x10^3/uL (1-3.4); LYMPHOCYTES % (AUTO) 12 % (22-44); MD NO; MEAN CORPUSCULAR HEMOGLOBIN 31.7 pg (27.5-34.5); MEAN CORPUSCULAR HGB CONC 33.4 g/dL (33.2-36.2); MEAN CORPUSCULAR VOLUME 94.8 fL (81-97); MEAN PLATELET VOLUME 8.4 fL (7.4-10.4); MONOCYTES # (AUTO) 1.01 x10^3/uL (0.2-0.8); MONOCYTES % (AUTO) 10 % (2-9); NEUTROPHILS # (AUTO) 8.01 x10^3/uL (1.8-6.8); NEUTROPHILS % (AUTO) 78 % (42-75); PLATELET COUNT 207 x10^3/uL (130-400); RED CELL DISTRIBUTION WIDTH 14.2 % (9.4-14.8)
--- NOTE | 2018-10-19 05:41 | NUR ---
URINE COLLECTED AND SENT TO LAB. PT. PROVIDED WITH WARM BLANKET. PT. REPORTS PAIN IS GONE AT THIS TIME AFTER MEDS. DENIES OTHER NEEDS.
[2018-10-19 05:46] LABS: ALBUMIN 3.7 g/dL (3.4-5.0); ANION GAP 5 mmol/L (5-15); CALCIUM 8.5 mg/dL (8.5-10.1); CHLORIDE 105 mmol/L (98-107); CREATININE 1.93 mg/dL (0.7-1.3)
[2018-10-19 05:59] LABS: MICROSCOPIC AUTO
[2018-10-19] MEDS ORDERED: CLOP75TA52 PO (06:03)
[2018-10-19 06:06] LABS: CULTURE INDICATED? YES
--- NOTE | 2018-10-19 06:24 | NUR ---
REPORT TO MARIEL TORREZ. FLOOR READY FOR PT. TRANSPORT.
[2018-10-19 06:38] VITALS: BP 146/71
[2018-10-19 07:20] VITALS: BP 137/69
[2018-10-19] MEDS ORDERED: ACETAMINOPHEN 325 MG TABLET PO PRN (07:30)
[2018-10-19] MEDS ORDERED: LORazepam 1MG TABLET PO PRN (07:30)
[2018-10-19] MEDS ORDERED: ONDANSETRON 2MG/ML, 2ML IVPush PRN (07:30)
[2018-10-19] MEDS ORDERED: ONDANSETRON ODT 4 MG PO PRN (07:30)
[2018-10-19 07:48] LABS: INTERNATIONAL NORMALIZED RATIO 0.98 (0.93-1.1); PROTHROMBIN TIME 10.3 Seconds (9.6-11.5)
[2018-10-19] MEDS ORDERED: PROPOFOL 10 MG/ML, 20ML ONE (08:59)
[2018-10-19] MEDS ORDERED: CEFAZOLIN 1,000 MG ONE (08:59)
[2018-10-19] MEDS ORDERED: TEMPLATE NON-FORMULARY MED. (Ca Carb & Gluc/Mag Ox & Gluc** (Calcium Magnesium Caplet**) 1 PO SCH (09:00)
[2018-10-19] MEDS ORDERED: TEMPLATE NON-FORMULARY MED. (Vit C/Vit E/Lutein/Min/Omega-3** (Ocuvite Softgel**) 1 TAB) PO SCH (09:00)
[2018-10-19] MEDS ORDERED: CRANBERRY EXTRACT PO SCH (09:00)
[2018-10-19] MEDS: HEPARIN 5,000 UNITS/ML, 1ML SQ SCH ×3 (09:37→23:28)
[2018-10-19] MEDS: CHOLECALCIFEROL 5,000u TAB PO SCH (09:39)
[2018-10-19] MEDS: SODIUM CHLORIDE 0.9% 1,000 ML IV SCH (09:40)
[2018-10-19] MEDS: TAMSULOSIN 0.4 MG CAP.ER.24H PO SCH (09:40)
[2018-10-19 13:29] VITALS: BP 138/69
[2018-10-19] MEDS ORDERED: INDOMETHACIN 25 MG CAPSULE PO PRN (13:30)
[2018-10-19] MEDS: HYDROmorphone 2 MG/ML, 1ML IV PRN ×2 (13:44→16:21)
[2018-10-19] MEDS ORDERED: MIDAZOLAM 1 MG/ML, 2ML ONE (17:43)
[2018-10-19] MEDS ORDERED: FENTANYL PF 100 MCG/2ML ONE (17:43)
[2018-10-19] MEDS ORDERED: ONDANSETRON 2MG/ML, 2ML IV PRN (18:30)
[2018-10-19] MEDS ORDERED: FENTANYL PF 100 MCG/2ML IV PRN (18:30)
[2018-10-19] MEDS ORDERED: LORazepam 2 MG/ML, 1ML IVPush PRN (18:30)
[2018-10-19] MEDS ORDERED: HYDROmorphone 2 MG/ML, 1ML IVPush PRN (18:30)
[2018-10-19] MEDS ORDERED: hydrALAzine 20 MG/ML, 1ML IV PRN (18:30)
[2018-10-19] MEDS ORDERED: LABETALOL 5MG/ML, 20ML IV PRN (18:30)
[2018-10-19] MEDS ORDERED: OXYcodone 5 MG/5 ML ORAL.SOL UDC PO PRN (18:30)
[2018-10-19] MEDS ORDERED: METOPROLOL 1 MG/ML, 5ML IV PRN (18:30)
[2018-10-19] MEDS ORDERED: MEPERIDINE/PF 25MG/0.5ML IVPush PRN (18:30)
[2018-10-19] MEDS ORDERED: OXYcodone 5 MG/5 ML ORAL.SOL UDC ONE (19:39)
[2018-10-19 20:19] VITALS: BP 185/81
[2018-10-19] MEDS ORDERED: ATORVASTATIN 20 MG TABLET PO SCH (21:00)
[2018-10-20 00:01] VITALS: BP 162/78
[2018-10-20] MEDS: SODIUM CHLORIDE 0.9% 1,000 ML IV SCH (04:38)
[2018-10-20 04:45] LABS: BASOPHILS # (AUTO) 0.02 x10^3/uL (0-0.1); BASOPHILS % (AUTO) 0 % (0-1); EOSINOPHILS # (AUTO) 0.06 x10^3/uL (0-0.4); EOSINOPHILS % (AUTO) 1 % (1-7); LYMPHOCYTES # (AUTO) 1.32 x10^3/uL (1-3.4); LYMPHOCYTES % (AUTO) 18 % (22-44); MD NO; MEAN CORPUSCULAR HEMOGLOBIN 31.5 pg (27.5-34.5); MEAN CORPUSCULAR HGB CONC 33.1 g/dL (33.2-36.2); MEAN CORPUSCULAR VOLUME 95.1 fL (81-97); MEAN PLATELET VOLUME 8.6 fL (7.4-10.4); MONOCYTES # (AUTO) 1.02 x10^3/uL (0.2-0.8); MONOCYTES % (AUTO) 14 % (2-9); NEUTROPHILS # (AUTO) 5.01 x10^3/uL (1.8-6.8); NEUTROPHILS % (AUTO) 67 % (42-75); PLATELET COUNT 180 x10^3/uL (130-400); RED BLOOD COUNT 3.83 x10^6/uL (4.38-5.82); RED CELL DISTRIBUTION WIDTH 14.2 % (9.4-14.8)
[2018-10-20 05:03] LABS: CHLORIDE 111 mmol/L (98-107)
[2018-10-20 05:07] LABS: ANION GAP 7 mmol/L (5-15); CALCIUM 8.1 mg/dL (8.5-10.1); CREATININE 1.16 mg/dL (0.7-1.3)
[2018-10-20] MEDS: HEPARIN 5,000 UNITS/ML, 1ML SQ SCH (07:30)
[2018-10-20 07:35] VITALS: BP 180/77
[2018-10-20] MEDS: CHOLECALCIFEROL 5,000u TAB PO SCH (07:59)
[2018-10-20] MEDS: TAMSULOSIN 0.4 MG CAP.ER.24H PO SCH (07:59)
[2018-10-20] MEDS ORDERED: AMLO2.5T5 PO (08:02)
[2018-10-20] MEDS ORDERED: ACET325T26 PO (08:02)
[2018-10-20] MEDS ORDERED: LISI-167 PO (08:02)
[2018-10-20] MEDS ORDERED: MAGNESIUM OXIDE 400 MG TABLET PO SCH (09:00)
[2018-10-20] MEDS ORDERED: AMLODIPINE 2.5 MG TABLET PO SCH (09:00)
[2018-10-20] MEDS ORDERED: LISINOPRIL 10 MG TABLET PO SCH (09:00)
[2018-10-20] MEDS ORDERED: CALCIUM CARBONATE 500 MG TABLET PO SCH (09:00)
[2018-10-20] MEDS ORDERED: MULTIVITAMINS/MINERALS TABLET PO SCH (09:00)
[2018-10-20] MEDS ORDERED: OXYB5TAB7 PO (11:45)
== END 2018-10-20 11:40 | disposition home or self-care (01) | DRG 661 ==
LOC: ED 05:41 → EDIP 06:08 → 3NW 06:34 → DCLOUNGE 10-20 11:19
PROVIDERS: ADMIT Emergency Medicine; ATTEND Internal Medicine
PROC: 0T768DZ Dilation of Right Ureter with Intraluminal Device, Via Natural or Artificial Opening Endoscopic (ICD-10-PCS; 2018-10-19)
PROC: 0TC68ZZ Extirpation of Matter from Right Ureter, Via Natural or Artificial Opening Endoscopic (ICD-10-PCS; principal; 2018-10-19 19:00)
DX: N13.2 Hydronephrosis with renal and ureteral calculous obstruction (principal); Z87.891 Personal history of nicotine dependence; N17.0 Acute kidney failure with tubular necrosis; E78.5 Hyperlipidemia, unspecified; E89.0 Postprocedural hypothyroidism; I10 Essential (primary) hypertension; I48.91 Unspecified atrial fibrillation; I73.9 Peripheral vascular disease, unspecified; N32.89 Other specified disorders of bladder; N40.0 Benign prostatic hyperplasia without lower urinary tract symptoms; Z79.01 Long term (current) use of anticoagulants; Z79.02 Long term (current) use of antithrombotics/antiplatelets; Z85.820 Personal history of malignant melanoma of skin; Z82.3 Family history of stroke
CPT/HCPCS: 36415; 74018; 76000; 80048; 81001; 82040; 82360; 85025; 85610; 87086; 88300; 96374; 96375; G0378; J0690; J1170; J1644; J1885; J2250; J2405; J2704; J3010; C1758; C1769; C2617; J2270; J7030